=== PATIENT | male | born 2000 | race Caucasian/White ===

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

== ENCOUNTER 2022-03-30 14:18 | Outpatient (CLI) | payer BC, OTHER ==
[2022-03-30 15:11] LABS: Hemoglobin 15.9 g/dL (13.5-17.5); Mean Corpuscular HGB CONC 35.2 g/dL (32.0-36.0); Mean Corpuscular Hemoglobin 30.3 pg (27.0-33.0); Mean Corpuscular Volume 86.1 fl (81.2-95.1); Mean Platelet Volume 9.7 fl (7.4-10.4); Platelet Count 189 10x3/uL (150-450); RBC Distribution Width 11.8 % (11.5-14.5); Red Blood Cell (RBC) Count 5.25 10x6/uL (4.32-5.72); White Blood Cell (WBC) Count 5.6 10x3/uL (3.5-10.5)
[2022-03-30 15:41] LABS: Anion Gap 15 mmol/L (10-20); BUN (Urea Nitrogen) 21 mg/dL (8.4-21.0); Calc. Creatinine Clearance 0 mL/min (70-130); Carbon Dioxide 28 mmol/L (22-29); Chloride 104 mmol/L (98-107); Glucose 90 mg/dL (70-105); Potassium 4.3 mmol/L (3.5-5.1); Sodium 143 mmol/L (136-145)
[2022-03-30 15:49] LABS: Prothrombin Time 11.1 sec (9.5-12.1)
== END 2022-03-30 14:19 | disposition home or self-care (01) ==
LOC: LABBT 14:18
PROVIDERS: ATTEND Internal Medicine Cardiovascular Disease
DX: Z01.812 Encounter for preprocedural laboratory examination (principal); I45.6 Pre-excitation syndrome; Z20.822 Contact with and (suspected) exposure to COVID-19
CPT/HCPCS: 80048; 85027; 85610; U0003; U0005

== ENCOUNTER 2022-04-02 06:20 | Day surgery (SDC) | payer BC, OTHER ==
[2022-03-31 09:56] VITALS: BMI 21.4
[2022-04-02] MEDS ORDERED: Heparin 10,000 UNITS/ 10 ML VIAL ONE (06:33)
[2022-04-02] MEDS ORDERED: Lidocaine 1% (PF) 30 ML VIAL ONE (06:33)
[2022-04-02] MEDS ORDERED: Protamine Sulfate 50 MG/5 ML VIAL ONE (06:33)
[2022-04-02] MEDS ORDERED: Fentanyl 100 MCG/2 ML VIAL ONE (07:29)
[2022-04-02] MEDS ORDERED: Propofol 1,000 MG/100 ML VIAL IV ONE (07:29)
[2022-04-02] MEDS ORDERED: Calcium Chloride 1 GM/10 ML Abboject SYRINGE ONE (07:35)
[2022-04-02] MEDS ORDERED: Ondansetron PF 4 MG/2 ML Vial ONE (07:35)
[2022-04-02] MEDS ORDERED: PHENYLEPHRINE-NS 100 MCG/ML 10 ML SYRINGE ONE ×2 (07:35→12:30)
[2022-04-02] MEDS ORDERED: Rocuronium Bromide 10 MG/ML (10ML VIAL) ONE (07:35)
[2022-04-02] MEDS ORDERED: PROPOFOL 200 MG/20 ML VIAL ONE (07:35)
[2022-04-02] MEDS ORDERED: Lidocaine 1% PF 5 ML VIAL ONE (07:35)
[2022-04-02] MEDS ORDERED: Ketorolac Tromethamine 30 MG/ML VIAL ONE (07:35)
[2022-04-02] MEDS ORDERED: Iopamidol 370 76% 100 ML VIAL ONE (11:03)
[2022-04-02] MEDS ORDERED: Iopamidol 370 76% 50 ML VIAL FS ONE (11:03)
[2022-04-02] MEDS ORDERED: SUGAMMADEX SODIUM 200 MG/2 ML VIAL ONE (13:43)
[2022-04-02] MEDS ORDERED: Meperidine HCl/PF 25 MG/ML VIAL ONE (14:23)
== END 2022-04-02 18:45 | disposition home or self-care (01) ==
LOC: SDC 06:20
PROVIDERS: ATTEND Internal Medicine Cardiovascular Disease
PROC: 02583ZZ Destruction of Conduction Mechanism, Percutaneous Approach (ICD-10-PCS; principal; 2022-04-02)
PROC: B244ZZ3 Ultrasonography of Right Heart, Intravascular (ICD-10-PCS; principal; 2022-04-02)
PROC: 4A023FZ Measurement of Cardiac Rhythm, Percutaneous Approach (ICD-10-PCS; principal; 2022-04-02)
PROC: 02K83ZZ Map Conduction Mechanism, Percutaneous Approach (ICD-10-PCS; principal; 2022-04-02)
PROC: 4A0234Z Measurement of Cardiac Electrical Activity, Percutaneous Approach (ICD-10-PCS; principal; 2022-04-02)
DX: I47.1 Supraventricular tachycardia (principal); I45.6 Pre-excitation syndrome; Z79.899 Other long term (current) drug therapy
CPT/HCPCS: 85347; 93005; 93462; 93613; 93620; 93621; 93653; 93662; C1730; C1732; C1759; C1894; C2630; J1644; J1885; J2001; J2175; J2405; J2704; J2720; J3010; Q9967